=== PATIENT | female | born 1965 | race Caucasian/White ===

== ENCOUNTER 2019-10-19 13:31 | Outpatient (CLI) | payer BC, SELFPAY ==
--- NOTE | 2019-10-19 13:37 | ECG_ITS ---
Measurements Intervals [place] Rate: 60 P: 75 IN: 134 QRS: 34 QRSD: 85 T: 16 QT: 408 QTc: 409 Interpretive Statements SINUS RHYTHM DELAYED PRECORDIAL R/S TRANSITION BORDERLINE ST-T WAVE ABNORMALITY- ANT/INF LEADS BASELINE ARTIFACT- I, III, AVL BORDERLINE ECG Electronically Signed On 10-19-2019 14:15:43 CDT by Ryne Douglas D.O.
== END 2019-10-19 13:32 | disposition home or self-care (01) ==
PROVIDERS: PCP Internal Medicine; Visit Provider Obstetrics & Gynecology
DX: Z72.0 Tobacco use (principal)
CPT/HCPCS: 93005

== ENCOUNTER 2020-06-03 12:18 | Outpatient (CLI) | payer BC, SELFPAY ==
[2020-06-03 12:48] LABS: Basophils Percent Auto 0.4 % (0.2-1.2); Eosinophils Absolute Auto 0.2 K/mm3 (0-0.3); Eosinophils Percent Auto 4.6 % (0-4.4); Hematocrit 39.6 % (37.0-47.0); Immature Granulocyte Absolute 0.01 K/mm3 (0.00-0.031); Immature Granulocyte Percent A 0.2 % (0-0.5); Lymphocytes Absolute Auto 1.96 K/mm3 (0.9-3.2); Mean Corpuscular HGB Conc 32.8 g/dl (32-36); Mean Corpuscular Hemoglobin 30.1 pg (26-34); Mean Corpuscular Volume 91.7 fl (80-100); Mean Platelet Volume 9.9 fl (7.4-10.4); Monocytes Absolute Auto 0.3 K/mm3 (0.1-0.6); Monocytes Percent Auto 6.4 % (2.6-8.5); Neutrophils Absolute Auto 2.1 K/mm3 (1.3-6.7); Neutrophils Percent Auto 45.4 % (45.5-73.1); Platelet Count Result 262 k/mm3 (150-375); Red Blood Count 4.32 M/mm3 (4.2-5.4); Red Cell Distribution Width 11.7 % (11.5-14.5); White Blood Count 4.6 K/mm3 (4.5-10.0)
[2020-06-03 13:00] LABS: Alanine Aminotransferase 19 U/L (4-35); Albumin Level 4.1 g/dL (3.5-5.1); Alkaline Phosphatase 67 U/L (38-126); Anion Gap 4 mmol/L (8-16); Aspartate Amino Transferase 23 U/L (14-36); Bilirubin,Total 0.3 mg/dL (0.2-1.3); Blood Urea Nitrogen 16 mg/dL (7-17); Calcium 9.3 mg/dL (8.4-10.2); Carbon Dioxide 33 mmol/L (22-30); Chloride 105 mmol/L (98-107); Estimated Glomerular Filt Rate > 60; Glucose 98 mg/dL (65-105); Potassium 4.1 mmol/L (3.4-5.0); Sodium 142 mmol/L (137-145)
== END 2020-06-03 12:19 | disposition home or self-care (01) ==
LOC: ANHSURGERY 12:20
PROVIDERS: PCP Internal Medicine; Visit Provider Obstetrics & Gynecology
DX: D25.9 Leiomyoma of uterus, unspecified (principal); Z01.818 Encounter for other preprocedural examination
CPT/HCPCS: 36415; 80053; 85025; 86850; 86900; 86901

== ENCOUNTER 2020-06-08 01:36 | Outpatient (CLI) | payer BC, SELFPAY ==
[2020-06-08 18:04] LABS: SARS-CoV-2 RNA PCR Negative
== END 2020-06-08 01:37 | disposition home or self-care (01) ==
LOC: ANHCOVIDDT 01:36
PROVIDERS: Visit Provider Obstetrics & Gynecology
DX: Z01.812 Encounter for preprocedural laboratory examination (principal); Z20.828 Contact with and (suspected) exposure to other viral communicable diseases
CPT/HCPCS: 87635; C9803; U0003

== ENCOUNTER 2020-06-12 00:43 | Day surgery (SDC) | payer BC, SELFPAY ==
[2020-05-31 14:19] VITALS: BMI 27.4
--- NOTE | 2020-06-11 13:12 | WPDANESEPPF ---
Anes - Initial Pre Proc Eval Procedure: Operation Date: 06/12/20 07:30 Proposed Procedures p Total Laparoscopic Hysterectomy - Diane Perkins MD Date/Time: 06/11/20 13:12 Surgeon: Diane Perkins MD Pre Op Diagnosis: uterine leiomyoma Patient Data Age: 54 Gender: F Height: 1.68 m Weight: 77.11 kg Allergies Allergy/AdvReac Type Severity Reaction Status Date / Time No Known Allergies Allergy Unknown Unverified 06/12/20 06:57 Home Medications Medication Instructions Recorded Confirmed Type buprenorphine-naloxone [Suboxone] See Rx Instructions .ROUTE .COMPLEX 10/16/19 05/31/20 History sertraline 150 mg PO DAILY 10/16/19 05/31/20 History levothyroxine [Euthyrox] 125 mcg PO DAILY 05/31/20 05/31/20 History multivitamin 1 tablet PO DAILY 05/31/20 05/31/20 History Patient hx anesthesia problems: none Family hx anesthesia problems: none PMFSH Past Medical History Medical History (Updated 06/11/20 @ 13:13 by Sammy Jeffery MD) Anxiety Back pain Chronic narcotic use Depression Raynauds disease Family History Family History (Updated 03/29/14 @ 07:13 by DOCTOR UNKNOWN) Father Hypertension Family history of elevated blood lipids Family history of coronary artery disease Acute myocardial infarction Social History Social History Smoking packs per day: 1 Smoking cigarettes per day: 20.0 Years smoked: 30 Smoking pack-years: 30.00 Smoking status: Former smoker Tobacco type: cigarettes and e-cigarettes/vaping Additional smoking assessment comments: quit cigarettes 07/2019, current vapor cigarette Alcohol intake: never Spiritual care concerns: No Anes - Eval Final PreProcedure Day of Procedure 06/11/20 13:12 Patient weight: overweight Heart: regular rate and rhythm Lungs: clear to auscultation and normal air movement Airway: Mallampati scale class II Neurological: alert and oriented Last oral intake: >/= 8 hours ASA classification: III Emergent: no Anesthetic plan: proceed Anesthesia type and monitoring: general ETT Other findings: 6 mg suboxone daily Informed Consent: The patient's anesthetic plan and its attendant risks and benefits were discussed with the patient/family/POA. Questions were solicited and answers provided to the satisfaction of the patient/family/POA.
[2020-06-12] VITALS (17 sets, daily range): BP systolic 120–152; BP diastolic 56–86; PULSE 65–87; RESP 12–20; TEMP 36.4–37.3; O2SAT 95–100
[2020-06-12] MEDS: ACETAMINOPHEN 500 MG TABLET 1000 MG PO (06:37)
[2020-06-12] MEDS: LACTATED RINGERS 1,000 ML 30 ML IV CONT ×3 (06:45→10:29)
[2020-06-12] MEDS: KETOROLAC 15 MG/ML VIAL (*BKC) IV PUSH (06:46)
--- NOTE | 2020-06-12 07:14 | WPDHPUPDATE1 ---
History and Physical Update Update Date/Time: 06/12/20 07:14 History and Physical has been reviewed, including an updated exam of the patient. There are NO changes in the patient's condition. Risks, benefits, and alternatives have been discussed and questions answered. Patient agrees to proceed with procedure.
--- NOTE | 2020-06-12 07:20 | WPDHPUPDATE1 ---
History and Physical Update Update Date/Time: 06/12/20 07:20 to also perform BSO History and Physical has been reviewed, including an updated exam of the patient. There are NO changes in the patient's condition. Risks, benefits, and alternatives have been discussed and questions answered. Patient agrees to proceed with procedure.
[2020-06-12] MEDS: ceFAZolin 2 GM/D5W 50 ML 2 GM/50 ML BAG IVPB (07:34)
--- NOTE | 2020-06-12 10:02 | PM.PROC ---
Procedure Note - Detailed Date of procedure: 06/12/20 Pre-op diagnosis: uterine leiomyoma Severe menorrhagia , pelvic pain, dyspareunia Post-op diagnosis: same Procedure performed: Total laparoscopic hysterectomy bilateral salpingo-oophorectomy Description of procedure: The patient was taken to the operating room. She was prepped and draped in the dorsal lithotomy position. A speculum was placed in the vagina. The cervix was grasped with a tenaculum. Stay sutures were placed at 3 and 9:00 a.m. of 0 Vicryl. The stay sutures were brought through the Philip up. The ROYCE manipulator was placed in the vagina with a fixed Philip cup. The cup was then pushed up around the cervix. The sutures were tied to the handle of the ROYCE manipulator. A 5 mm incision was made on the abdominal skin of the left upper quadrant using a scalpel. A 5 mm trocar was inserted into the intra-abdominal cavity under direct visualization the scope. Pneumoperitoneum was achieved. An 11 mm incision was made in the left lower quadrant of the abdomen with a scalpel. A 11 mm trocar was inserted into the intra-abdominal cavity under direct visualization the scope. A 5 mm periumbilical incision was made. A 5 mm scope was placed into the intra-abdominal cavity under direct visualization of the scope. The ureters were identified. The ureters were observed to be away from the infundibulopelvic ligaments. These infundibulopelvic ligaments were isolated, cauterized, and transected with LigaSure cautery. This was done in a bilateral fashion. The para ovarian tissue along the pelvic sidewall was cauterized and transected in a bilateral fashion using the ligature cautery. The round ligaments were cauterized and transected bilaterally with LigaSure cautery. The broad ligaments were cauterized and transected along the lateral aspects of the uterus down the level of the uterine arteries. A bladder flap was created using sharp and blunt dissection. The ureters were dissected out bilaterally down to the level of the uterine arteries. The could be visualized from the pelvic brim down the uterine arteries. Staying very close to the cervix the parametrium was cauterized transected in a stepwise fashion down to the level of the Philip cup. The Bladder flap was moved distally over the Philip cup using sharp and blunt dissection. The cup was visualized and a complete 360 degree papillary around the cervix. An incision was made with unipolar cautery down under the Philip cup creating a colpotomy incision all the way around the cervix. The uterus was cut into 3 pieces with unipolar cautery. Prior to that a 4th trocar was placed in the right lower quadrant trocar site. The uterus was grasped with 2 tenaculi , using traction, counter traction to facilitate the uterus into 3 pieces.. The uterus tubes and ovaries were taken out through the vagina. A pneumo occluder was placed in the vagina. The vagina was closed with 0 V lock suture in a running fashion. The ureters were identified again and found to be intact elevated and the uterine arteries. The pelvis was irrigated with a copious amount of antibiotic irrigation. The pneumoperitoneum was reduced. The trocars were removed. The skin was closed subcuticular 4 Monocryl covered with Dermabond. The pneumo occluder was removed from the vagina. The vagina was irrigated with Betadine. The patient tolerated the procedure well. She was taken to the recovery room in stable condition. Sponge lap and needle counts were correct x2. Anesthesia: GETA Surgeon: Diane Perkins MD Estimated blood loss (mL): 200 Drains: No Packing: No Pathology: yes Complications: No immediate complications Condition: stable Disposition: PACU Findings: Grossly normal-appearing tubes and ovaries. markedly enlarged fibroid uterus with multiple large fibroids. Fibroids were firm and calcified.
[2020-06-12] MEDS: fentaNYL CITRATE INJ (*CRX) 100 MCG/2 ML VIAL 50 MCG IV PUSH ×4 (10:13→10:37)
[2020-06-12] MEDS: HYDROmorphone HCL INJ (*CRX) 1 MG/ML SYR 0.5 MG IV PUSH ×8 (10:43→11:18)
--- NOTE | 2020-06-12 11:25 | PC.NURSE ---
This patient, Blanca Zapata, was received from PACU per bed to room 288. Patient/family oriented to unit policies and routines
[2020-06-12] MEDS: SIMETHICONE 80 MG TAB.CHEW PO ×2 (14:05→21:43)
[2020-06-12] MEDS: KETOROLAC 30 MG/ML VIAL (*BKC) IV PUSH ×2 (16:11→21:47)
[2020-06-13 01:45] VITALS: BP 127/75; PULSE 67; RESP 14; TEMP 36.9
[2020-06-13 05:30] VITALS: BP 135/78; PULSE 62; RESP 15; TEMP 36.8
[2020-06-13] MEDS: LEVOTHYROXINE SODIUM 125 MCG TABLET PO (07:23)
[2020-06-13] MEDS: IBUPROFEN 600 MG TABLET PO (07:23)
[2020-06-13] MEDS: MULTIVITAMINS THERAPEUTIC TAB (*BKC) 1 TABLET PO (07:24)
[2020-06-13] MEDS: SERTRALINE HCL 50 MG TABLET 150 MG PO (07:25)
[2020-06-13] MEDS: SIMETHICONE 80 MG TAB.CHEW PO (07:29)
[2020-06-13 08:25] VITALS: BP 128/76; PULSE 73; RESP 18; TEMP 37.1; O2SAT 97
--- NOTE | 2020-06-13 09:47 | WPDANESPN ---
Anes - Prog Note Post-Op Date/Time: 06/13/20 09:47 Cardiovascular status: normal Respiratory status: normal Airway patency: baseline Mental status: baseline Post-Op hydration status: normal Vital Signs: Last Vital Signs Temp 37.1 C 06/13/20 08:25 Pulse 73 06/13/20 08:25 Resp 18 06/13/20 08:25 BP 128/76 06/13/20 08:25 Pulse Ox 97 06/13/20 08:25 Pain Score (VAS): 0 I/O: Intake & Output 06/12/20 06/13/20 06/13/20 23:59 07:59 15:59 Intake Total 480 500 Output Total 1800 600 Balance -1320 -100 Post-procedural complaints: none Patient Feedback: Patient satisfied with anesthetic care.
--- NOTE | 2020-06-13 15:01 | PM.GYNPNOP ---
STEREO EQUIPMENT SALESPERSON - A/P Postoperative Procedures: Procedures Operation Date: 06/12/20 07:30 Actual Procedures Side Surgeon p Total Laparoscopic Hysterectomy with bilateral salpingo oophorectomy Bilateral Diane Perkins MD Postoperative day: 1 Postoperative status: doing well and other (Tollerating Regular Diet) Postoperative plan: routine post-op care and discharge Time Spent With Patient Time: Total time spent is greater than 50% in coordination of care (as documented) at patient's floor/unit and/or counseling patient: Time with patient: 15 - 25 minutes STEREO EQUIPMENT SALESPERSON- PN:Subj Post-Op Subjective Date/time seen: 06/13/20 15:01 Subjective: patient reports feeling better, pain is well controlled and patient is tolerating oral intake Exam Const: General: cooperative, healthy appearing, comfortable and no acute distress Resp: Auscultation: no crackles, no rales, no rhonchi and no wheezes Cardio: Rhythm: regular rhythm Heart sounds: no click and no murmurs GI: Inspection: non-distended Auscultation: normal bowel sounds Other: Incisions - CDI Extrem: General: normal to inspection, no pedal edema and no calf tenderness STEREO EQUIPMENT SALESPERSON - PN: Obj Data Vital Signs Vital Signs: Vital Signs - 24 hr 06/12/20 20:00 06/13/20 01:45 06/13/20 05:30 Temperature 98.6 F 98.5 F 98.2 F Pulse Rate 77 67 62 Respiratory Rate 18 14 15 Blood Pressure 120/62 127/75 135/78 Pulse Oximetry 06/13/20 08:25 Temperature 98.7 F Pulse Rate 73 Respiratory Rate 18 Blood Pressure 128/76 Pulse Oximetry 97 Intake/Output Intake/Output: Intake & Output 06/10/20 06/11/20 06/12/20 06/13/20 23:59 23:59 23:59 23:59 Intake Total 1630 500 Output Total 2275 600 Balance -645 -100 Meds/Results Medications: Active Medications Generic Name Dose Route Start Last Admin Trade Name Freq PRN Reason Stop Dose Admin Hydrocodone Bitart/Acetaminophen 1 tab 06/12/20 11:18 Hydrocodone/Acetaminophen (*Crx) 5-325 Mg Tablet PO Q3H PRN Pain Rated 5 or Less Hydrocodone Bitart/Acetaminophen 1 tab 06/12/20 11:18 Hydrocodone/Acetaminophen (*Crx) 10-325 Mg Tablet PO Q3H PRN Pain Rated 6 or Greater Ibuprofen 600 mg 06/12/20 11:18 06/13/20 07:23 Ibuprofen 600 Mg Tablet PO 600 mg Q6H PRN Administration Cramping Ketorolac Tromethamine 30 mg 06/12/20 11:18 06/12/20 21:47 Ketorolac 30 Mg/Ml Vial (*Bkc) IV PUSH 06/17/20 11:19 30 mg Q6H PRN Administration Pain Rated 4-6 Levothyroxine Sodium 125 mcg 06/13/20 06:30 06/13/20 07:23 Levothyroxine Sodium 125 Mcg Tablet PO 125 mcg DAILY@0630 GÓMEZ Administration Multivitamins Therapeutic 1 tablet 06/13/20 09:00 06/13/20 07:24 Multivitamins Therapeutic Tab (*Bkc) PO 1 tablet DAILY GÓMEZ Administration Naloxone HCl 0.1 mg 06/12/20 11:18 Naloxone Hcl 0.4 Mg/Ml Vial IV PUSH Q2M PRN Respiratory rate less than 10 Non-Formulary Medication 8 mg 06/12/20 11:18 Buprenorphine-Naloxone [Suboxone] .ROUTE 07/12/20 11:19 .COMPLEX GÓMEZ Ondansetron HCl 4 mg 06/12/20 11:18 Ondansetron Inj 4 Mg/2 Ml Vial IV PUSH Q6H PRN Nausea And Vomiting Sertraline HCl 150 mg 06/13/20 09:00 06/13/20 07:25 Sertraline Hcl 50 Mg Tablet PO 150 mg DAILY GÓMEZ Administration Simethicone 80 mg 06/12/20 14:08 06/13/20 07:29 Simethicone 80 Mg Tab.Chew PO 80 mg Q2H PRN Administration Gas Discomfort
== END 2020-06-13 15:23 | disposition home or self-care (01) ==
LOC: ANHSURGERY 06:08 → ANHOB2 11:24
PROVIDERS: Visit Provider Obstetrics & Gynecology
PROC: 0UT9FZZ Resection of Uterus, Via Natural or Artificial Opening With Percutaneous Endoscopic Assistance (ICD-10-PCS; CPT 58571; principal; 2020-06-12 07:30)
DX: N92.0 Excessive and frequent menstruation with regular cycle (principal); R10.2 Pelvic and perineal pain; N94.10 Unspecified dyspareunia; D25.0 Submucous leiomyoma of uterus; D25.1 Intramural leiomyoma of uterus; D25.2 Subserosal leiomyoma of uterus; N83.8 Other noninflammatory disorders of ovary, fallopian tube and broad ligament; F41.8 Other specified anxiety disorders; I73.00 Raynaud's syndrome without gangrene; Z79.891 Long term (current) use of opiate analgesic; F17.290 Nicotine dependence, other tobacco product, uncomplicated
CPT/HCPCS: 58571; 88307; 99199; A9270; J0690; J1170; J1200; J1885; J2250; J2405; J2704; J2710; J3010; J7030; J7120

== ENCOUNTER → 2020-09-20 12:03 | Outpatient (CLI) | payer BC, SELFPAY ==
--- NOTE | ~2020-09-20 | CT_ITS ---
EXAMINATION: CT soft tissue neck w con EXAM DATE: 09/20/2020 12:29 INDICATION: Submandibular lymphadenopathy . TECHNIQUE: Spiral CT of the neck was performed following intravenous injection of 75 mL Omnipaque 350 . Axial, coronal and sagittal images were reviewed. The dose-length product (DLP) for this examinat ion was 352.02 mGy-cm. The exposure was tailored according to patient size (auto mA exposure control ), and iterative reconstruction (ASIR) was used as additional dose reduction technique. There is no prior study for comparison. FINDINGS: The thyroid gland is unremarkable. The submandibular and parotid glands are symmetric. Largest cervical lymph node identified is right-sided level 2 internal jugular chain node measuring 2 .4 cm in craniocaudal dimension by 0.8 cm maximal axial dimension. No submandibular lymphadenopathy. The superior mediastinum is unremarkable. The airway is unremarkable. Parapharyngeal and pre-glot tic fat planes are preserved. The opacified vasculature is patent. The orbits are unremarkable. Visualized sinuses and mastoid air cells are well aerated. Lung apices are clear. There is mild c ervical spondylosis. IMPRESSION: 1. Right upper internal jugular chain lymph node upper limits of normal in size. Other lymph nodes we ll within normal size limits. Does this correlate to the palpable abnormality? Recommend clinical fol low-up and if enlargement detected a repeat scan. 2. Symmetric submandibular glands. Reviewed, dictated and finalized at location A. IR OPERATOR IMPRESSION: 1. Right upper internal jugular chain lymph node upper limits of normal in size . Other lymph nodes well within normal size limits. Does this correlate to the palpable abnormality? Recommend clinical follow-up and if enlargement detected a repeat scan. 2. Symmetric submandibular glands.
--- NOTE | ~2020-09-20 | XR_ITS ---
XR chest 2V DATE: 09/20/2020 12:33 INDICATION: Tobacco use TECHNIQUE: 2 views COMPARISON: None FINDINGS: Normal heart size. No hilar or mediastinal enlargement. No pulmonary infiltrate or consolid ation, pleural effusion or pulmonary vascular congestion or pneumothorax. There is mild dextroscoliosis and mild degenerative spurring of the thoracic spine. Mild to moderate osteopenia is suggested. IMPRESSION: No active cardiopulmonary disease Reviewed, dictated and finalized at location B. ERSITY LIBRARIAN
== END ==
DX: R59.0 Localized enlarged lymph nodes (principal); F17.200 Nicotine dependence, unspecified, uncomplicated
CPT/HCPCS: 70491; 71046; Q9967

== ENCOUNTER 2021-01-09 09:05 | Outpatient (CLI) | payer BC, SELFPAY ==
--- NOTE | ~2021-01-09 | DEXA_ITS ---
Bone Density Report Name: Blanca Zapata Age: 55 Sex: Female Ethnicity: White Date of : 1965 Indication: postmenopausal; hysterectomy; Referring Provider: Diane Perkins Study: Bone densitometry was performed. Exam Date: January 09, 2021 Accession number: [id number] Bone Density: Region BMD T-score Z-score Classification AP Spine (L1-L4) 0.965 -0.7 0.2 Normal Femoral Neck (Left) 0.765 -0.8 0.2 Normal Total Hip (Left) 0.872 -0.6 0.0 Normal Total Hip Bilateral Avg 0.876 -0.6 0.1 Normal Femoral Neck (Right) 0.759 -0.8 0.1 Normal Total Hip (Right) 0.878 -0.5 0.1 Normal World Health Organization criteria for BMD impression classify patients as: Normal (T-score at or above -1.0), Osteopenia (T-score between -1.0 and -2.5), or Osteoporosis (T-score at or below -2.5). 10-year Fracture Risk: FRAX not reported because: All T-scores for Spine Total, Hip Total, Femoral Neck at or above -1.0 Clinical Information Provided by Patient: Smokes Has used the following medications: HRT (i.e. estrogen/hormone therapy), Vitamin D, Calcium Has the following medical conditions: Hysterectomy Patient maximum height was 66 Menopause Age: 52 No regular weight bearing exercise Onset of menses at age 14 Number of children 0 Impression: The patient has normal bone mass. The patient has risk factors, including: smoking. Discussion: BONE DENSITY IS ABOVE THE MINIMUM DESIRABLE LEVEL AT ALL SKELETAL SITES TESTED. This patient?s bone mineral density is above the minimum desirable level (T-score -1.0 or better) at all sites measured. The patient should follow a healthful lifestyle (good nutrition with adequate calcium and vitamin D, and appropriate weight-bearing exercise). Follow-Up: Consider repeating this study in 5 years or sooner if there is some new clinical indication. Reported by: JESUS on 01/09/2021 9:32:00 AM. Reviewed, dictated and finalized at location ATami DONATO
--- NOTE | ~2021-01-09 | MM_ITS ---
EXAMINATION: MM screening robert BI w brady HISTORY: Screening mammogram TECHNIQUE: Craniocaudal and mediolateral oblique 3-D tomosynthesis images were obtained and synthetic 2-D images were generated. CAD analysis was submitted and interpreted. COMPARISON: No prior mammogram is available for comparison at this institution. BREAST PARENCHYMAL COMPOSITION: The breasts are heterogeneously dense, which may obscure small masses . FINDINGS: Circumscribed 6 mm mass in the inner aspect of the mid medial right breast (craniocaudal To mosynthesis image ) Otherwise there is no evidence of suspicious mass, calcification, or architectural distortion to sugg est malignancy in either breast. IMPRESSION: 1. 6 mm circumscribed mass in inner aspect of mid medial right breast 2. Diagnostic right mammogram and right breast ultrasound examination are recommended. BI-RADS Category 0: Incomplete: Needs additional imaging evaluation. Reviewed, dictated and finalized at location A. IMPRESSION: 1. 6 mm circumscribed mass in inner aspect of mid medial right breast 2. Diagnostic right mammogram and right breast ultrasound examination are recom mended. BI-RADS Category 0: Incomplete: Needs additional imaging evaluation.
== END 2021-01-09 09:06 | disposition home or self-care (01) ==
LOC: ANHIMG 09:07
PROVIDERS: Visit Provider Obstetrics & Gynecology
DX: Z12.31 Encounter for screening mammogram for malignant neoplasm of breast (principal); Z78.0 Asymptomatic menopausal state; R92.8 Other abnormal and inconclusive findings on diagnostic imaging of breast
CPT/HCPCS: 77063; 77067; 77080

== ENCOUNTER 2022-01-26 07:59 | Outpatient (CLI) | payer BC, SELFPAY ==
--- NOTE | 2022-02-09 19:06 | WPDHOMESLEEP ---
Sleep Study - Home Unattended Date of Study: 01/26/22 Ordering Provider: Donna Mack MD Interpreting Provider: Susi Bunn, DO Home Sleep Study Type: Apnea Link Air Height: 1.65 m Weight: 78.925 kg Body Mass Index: 28.9 Neck Circumference (inches): 16 [place]: 15 Reason for Sleep Study Nighttime heart palpitations, Worsening depression Sleep History The patient is a 56-year-old female with hypertension, depression, hypothyroidism, Raynaud's and history of tobacco use that had a sleep study ordered by her french tutor for evaluation of sleep apnea. 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 He denies awakening from sleep short of breath. She denies awakening at night with heartburn, belching or cough. She occasionally snores but it is never loud enough that others complain. She denies having trouble sleeping when she has a cold. She denies waking up gasping for air throughout the night. She denies having breathing problems at night observed by herself or others. She denies sweating excessively at night. She constantly has heart palpitations or irregular heartbeats during the night. She denies falling asleep during the day and while driving. She denies sleep paralysis and cataplexy. She denies having trouble at school or work due to sleepiness. She frequently experiences vivid dreamlike scenes upon awakening or falling asleep. She denies feeling afraid of going to sleep. She occasionally has nightmares and she occasionally remembers her dreams. She constantly has thoughts racing through her mind. She constantly feels sad, depressed and anxious. She rarely has muscular tension. She frequently notices parts of her body jerk. She rarely kicks during the night. She rarely experiences crawling and aching feelings in her legs. She rarely has leg pain during the night. She denies grinding her teeth during sleep and awakening with morning jaw pain. He is rarely bothered by pain during the day and rarely awakened by pain during the night. She denies waking up feeling stiff in the morning. She denies waking up with sore achy muscles. She denies waking up with pain in the neck, spine or other joints. The patient goes to bed between 1 a.m. on both weekdays and weekends. She is unsure how long it takes her to fall asleep. She rarely wakes up during the night. When she awakens, she will just lay in bed. It can take her up to an hour to fall back asleep. She wakes up at 10:00 a.m. on and 7:00 a.m. on Sundays. She typically gets 8-10 hours of sleep per night. She does not stay in bed after waking up in the morning. She currently lives with her . She does not consume any caffeinated beverages within 2 hours of bedtime. She does not engage in physical exercise before bedtime. She will read watch television before falling asleep. She does not take naps in the afternoon or the evening. He does not consume any caffeinated beverages throughout the day. She currently uses E cigarettes. She denies alcohol and recreational drug use. [facility] Past Medical History Medical History ADHD Anxiety Back pain Chronic narcotic use Depression Raynauds disease Family History Family History Father Hypertension Family history of elevated blood lipids Family history of coronary artery disease Acute myocardial infarction Social History Social History Smoking packs per day: 1 Smoking cigarettes per day: 20.0 Years smoked: 30 Smoking pack-years: 30.00 Smoking status: Former smoker Tobacco type: cigarettes and e-cigarettes/vaping Additional smoking assessment comments: quit cigarettes 07/2019, current vapor cigarette Alcohol intake: never Spiritual care concerns: No Medications Home Medications Medication Inst
[2022-02-09 19:11] VITALS: BMI 28.9
== END 2022-01-27 12:37 | disposition home or self-care (01) ==
LOC: ANHCSM 08:00
PROVIDERS: Visit Provider Internal Medicine Critical Care Medicine
DX: G47.10 Hypersomnia, unspecified (principal)
CPT/HCPCS: 95806

== ENCOUNTER 2022-03-17 08:03 | Outpatient (CLI) | payer BC, SELFPAY ==
--- NOTE | 2022-04-21 00:44 | WPDSLEEPSTUD ---
Sleep Study Date of Study: 03/17/22 Ordering Provider: Donna Mack MD Interpreting Physician: Suis Bunn DO Sleep Study Type: Polysomnogram Height: 1.65 m Weight: 77.111 kg Body Mass Index: 28.3 Neck Circumference (inches): 15 [place]: 10 Reason for Sleep Study The patient had a home sleep study on 01/26/2022 that showed an AHI of 1.4 Sleep History The patient is a 56-year-old female with hypertension, depression, hypothyroidism, Raynaud's and history of tobacco use that had a sleep study ordered by her automatic silk screen printer for evaluation of sleep apnea.? 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 He denies awakening from sleep short of breath.? She denies awakening at night with heartburn, belching or cough.? She occasionally snores but it is never loud enough that others complain.? She denies having trouble sleeping when she has a cold.? She denies waking up gasping for air throughout the night.? She denies having breathing problems at night observed by herself or others.? She denies sweating excessively at night.? She constantly has heart palpitations or irregular heartbeats during the night.? She denies falling asleep during the day and while driving.? She denies sleep paralysis and cataplexy.? She denies having trouble at school or work due to sleepiness.? She frequently experiences vivid dreamlike scenes upon awakening or falling asleep.? She denies feeling afraid of going to sleep.? She occasionally has nightmares and she occasionally remembers her dreams.? She constantly has thoughts racing through her mind.? She constantly feels sad, depressed and anxious.? She rarely has muscular tension.? She frequently notices parts of her body jerk.? She rarely kicks during the night.? She rarely experiences crawling and aching feelings in her legs.? She rarely has leg pain during the night.? She denies grinding her teeth during sleep and awakening with morning jaw pain.? He is rarely bothered by pain during the day and rarely awakened by pain during the night.? She denies waking up feeling stiff in the morning.? She denies waking up with sore achy muscles.? She denies waking up with pain in the neck, spine or other joints.? The patient goes to bed between 1 a.m. on both weekdays and weekends.? She is unsure how long it takes her to fall asleep.? She rarely wakes up during the night.? When she awakens, she will just lay in bed.? It can take her up to an hour to fall back asleep.? She wakes up at 10:00 a.m. on and 7:00 a.m. on Sundays.? She typically gets 8-10 hours of sleep per night.? She does not stay in bed after waking up in the morning.? She currently lives with her .? She does not consume any caffeinated beverages within 2 hours of bedtime.? She does not engage in physical exercise before bedtime.? She will read watch television before falling asleep.? She does not take naps in the afternoon or the evening. He does not consume any caffeinated beverages throughout the day.? She currently uses E cigarettes. She denies alcohol and recreational drug use. [facility] Past Medical History Medical History ADHD Anxiety Back pain Chronic narcotic use Depression Raynauds disease Family History Family History Father Hypertension Family history of elevated blood lipids Family history of coronary artery disease Acute myocardial infarction Social History Social History Smoking packs per day: 1 Smoking cigarettes per day: 20.0 Years smoked: 30 Smoking pack-years: 30.00 Smoking status: Former smoker Tobacco type: cigarettes and e-cigarettes/vaping Additional smoking assessment comments: quit cigarettes 07/2019, current vapor cigarette Alcohol intake: never Spiritual care concerns: No Medications Home Medications Medication Instr
[2022-04-21 00:56] VITALS: BMI 28.3
== END 2022-03-18 08:10 | disposition home or self-care (01) ==
LOC: ANHCSM 08:04
PROVIDERS: Visit Provider Internal Medicine Critical Care Medicine
DX: G47.10 Hypersomnia, unspecified (principal); G47.30 Sleep apnea, unspecified; R00.8 Other abnormalities of heart beat
CPT/HCPCS: 95810

== ENCOUNTER 2022-06-23 14:32 | Emergency (ER) | payer BC, SELFPAY ==
[2022-06-23 14:40] VITALS: BP 143/89; PULSE 97; RESP 16; TEMP 36.9; O2SAT 99
--- NOTE | 2022-06-23 14:53 | PC.NURSE ---
pt found vaping in her room. pt asked to put it away as we do not allow smoking in the hospital or on our campus. pt agreeable.
--- NOTE | 2022-06-23 15:06 | PC.NURSE ---
pt verbalized it is ok if is a visitor.
--- NOTE | 2022-06-23 15:13 | PC.NURSE ---
pt vape confiscated by this RN and security Geovanna. pt vape placed in safe.
--- NOTE | 2022-06-23 15:51 | ECG_ITS ---
Measurements Intervals [place] Rate: 94 P: 64 WV: 126 QRS: 37 QRSD: 92 T: -9 QT: 367 QTc: 460 Interpretive Statements SINUS RHYTHM ST-T WAVE ABNORMALITY IN ANT/INF LEADS- CONSIDER ISCHEMIA BASELINE ARTIFACT- I, III, AVL ABNORMAL ECG COMPARED TO ECG 10/19/2019 14:04:02 ST-T WAVE ABNORMALITY NOW PRESENT Electronically Signed On 06-24-2022 8:55:36 POLL WATCHER by Ryne Douglas D.O.
--- NOTE | 2022-06-23 15:54 | ED.GENADULT ---
HPI - General Adult General Chief complaint: Psychiatric Symptoms <Harley Mcintyre MD - Last Filed: 07/04/22 14:12> Stated complaint: SI <Harley Mcintyre MD - Last Filed: 07/04/22 14:12> Time Seen by Provider: 06/23/22 14:43 <Harley Mcintyre MD - Last Filed: 07/04/22 14:12> History of Present Illness HPI narrative: 56-year-old female presenting to the emergency department for evaluation of worsening anxiety depression with associated suicidal ideation. Patient does have a psychiatrist and a counselor and had previously been on sertraline. Patient stopped this approximately 2 months ago because she felt that this was not helping her anymore. Patient states over the last few weeks she has had worsening anxiety. Patient states today that she did develop some suicidal ideation. Patient is unsure if she still wants to but she did express a plan to her . Her is the person who actually called police and EMS. Patient does have a psychiatrist and does have a counselor. <Harley Mcintyre MD - Last Filed: 07/04/22 14:12> Related Data Home medications: Home Medications Medication Instructions Recorded Confirmed levothyroxine 125 mcg tablet 125 mcg PO DAILY 05/31/20 06/12/20 (Euthyrox) multivitamin 1 tablet PO DAILY 05/31/20 06/12/20 aripiprazole 2 mg tablet (Abilify) 2 mg PO DAILY 10/28/21 buprenorphine 8 mg-naloxone 2 mg 4 film sublingual .COMPLEX 10/28/21 sublingual film (Suboxone) lisdexamfetamine 50 mg capsule 50 mg PO DAILY 10/28/21 (Vyvanse) <Harley Mcintyre MD - Last Filed: 07/04/22 14:12> Allergies/adverse reactions: Allergies Allergy/AdvReac Type Severity Reaction Status Date / Time No Known Allergies Allergy Unknown Unverified 10/28/21 11:49 <Harley Mcintyre MD - Last Filed: 07/04/22 14:12> Review of Systems Review of Systems: CONSTITUTIONAL: Denies fever, chills, or sweats. EYES: Denies visual changes, redness, or discharge. ENT: Denies rhinorrhea, congestion, sore throat, or otalgia. CARDIOVASCULAR: Denies chest pain, palpitations, or edema. RESPIRATORY: Denies cough or dyspnea. GASTROINTESTINAL: Denies abdominal pain, nausea, vomiting, or diarrhea. GENITOURINARY: Denies dysuria or hematuria. SKIN: Denies rash or itching. MUSCULOSKELETAL: Denies back pain, joint pain, or myalgia. NEUROLOGIC: Denies headache, numbness, or weakness. PSYCHIATRIC: See HPI <Harley Mcintyre MD - Last Filed: 07/04/22 14:12> PMFSH Past Medical History Medical History: Medical History ADHD Anxiety Back pain Chronic narcotic use Depression Raynauds disease <Harley Mcintyre MD - Last Filed: 07/04/22 14:12> Family History Family History: Family History Father Hypertension Family history of elevated blood lipids Family history of coronary artery disease Acute myocardial infarction <Harley Mcintyre MD - Last Filed: 07/04/22 14:12> Social History Social History: Social History Smoking packs per day: 1 Smoking cigarettes per day: 20.0 Years smoked: 30 Smoking pack-years: 30.00 Smoking status: Former smoker Tobacco type: cigarettes and e-cigarettes/vaping Additional smoking assessment comments: quit cigarettes 07/2019, current vapor cigarette Alcohol intake: never Substance use type: unknown Spiritual care concerns: No <Harley Mcintyre MD - Last Filed: 07/04/22 14:12> Exam Narrative: APPEARANCE: Well appearing, no pain, no distress, well-nourished. HEAD: normocephalic, atraumatic. EYES: PERRLA/EOMI, conjunctivae clear. NOSE: Normal no drainage THROAT: Pharynx clear, no exudate. NECK: Supple. No adenopathy, no masses. RESPIRATORY: Airway patent, respirations nonlabored. Clear to auscultation bilaterally, no rales, rhonchi, wheezing
[2022-06-23] MEDS: LORazepam (*CRX) 1 MG TABLET PO ×2 (16:16→21:33)
--- NOTE | 2022-06-23 16:16 | PC.NURSE ---
pt refused nicotine patch, stating she had nicotine gum pt did receive Ativan 1 mg PO per order no scanner in room 15
[2022-06-23 16:21] LABS: Basophils Percent Auto 0.3 % (0.2-1.2); Eosinophils Percent Auto 0.2 % (0-4.4); Hematocrit 44.5 % (37.0-47.0); Hemoglobin 15.1 g/dL (12.0-15.0); Immature Granulocyte Absolute 0.03 K/mm3 (0.00-0.031); Immature Granulocyte Percent A 0.3 % (0-0.5); Lymphocytes Absolute Auto 1.94 K/mm3 (0.9-3.2); Lymphocytes Percent Auto 18.9 % (18.3-44.2); Mean Corpuscular HGB Conc 33.9 g/dl (32-36); Mean Corpuscular Hemoglobin 30.2 pg (26-34); Mean Platelet Volume 10.2 fl (7.4-10.4); Monocytes Absolute Auto 0.5 K/mm3 (0.1-0.6); Monocytes Percent Auto 4.4 % (2.6-8.5); Neutrophils Absolute Auto 7.8 K/mm3 (1.3-6.7); Neutrophils Percent Auto 75.9 % (45.5-73.1); Platelet Count Result 412 k/mm3 (150-375); White Blood Count 10.3 K/mm3 (4.5-10.0)
[2022-06-23 16:31] LABS: Acetaminophen < 10 ug/mL (10-30); Ethanol < 10 mg/dL (<10); Salicylate < 1.0 mg/dL (2-20)
[2022-06-23 16:39] LABS: Add Urine Microscopic? YES; Appearance Urine Clear (Clear); Bilirubin Urine 1+ (Negative); Blood Urine Trace-intact (Negative); Color Urine Yellow (Yellow); Glucose Urine UA Negative (Negative); Ketones Urine 2+ mg/dL (Negative); Leukocyte Esterase Ur 1+ LEU/UL (Negative); Nitrate Urine Negative (Negative); Protein Urine Negative (Negative); Specific Grav Ur 1.015 (1.001-1.035); Urobilinogen Urine 0.2 mg/dL (<2.0); pH Urine 6.5 (5.0-9.0)
[2022-06-23 16:46] LABS: Bacteria Urine Trace /hpf; Mucus Urine Rare /lpf; Squamous Epithelial Cell Urine Rare /hpf (Few)
[2022-06-23 16:51] LABS: Barbiturate Screen Urine Negative (Negative); Benzodiazepines Screen Urine Negative (Negative)
[2022-06-23 16:55] LABS: Amphetamine Screen Urine Negative (Negative); Cannabinoid Screen Urine Negative (Negative); Cocaine Screen Urine Negative (Negative); Methadone Screen Urine Negative (Negative); Phencyclidine Screen Urine Negative (Negative)
[2022-06-23 17:12] LABS: Opiate Screen Urine Negative (Negative)
[2022-06-23 17:14] LABS: Alanine Aminotransferase 31 U/L (6-35); Albumin Level 4.9 g/dL (3.5-5.1); Alkaline Phosphatase 79 U/L (38-126); Anion Gap 11 mmol/L (8-16); Aspartate Amino Transferase 40 U/L (14-36); Bilirubin,Total 0.6 mg/dL (0.2-1.3); Blood Urea Nitrogen 14 mg/dL (7-17); Calcium 9.8 mg/dL (8.4-10.2); Carbon Dioxide 29 mmol/L (22-30); Chloride 98 mmol/L (98-107); Estimated CRCL calculation 100 ml/min; Estimated Glomerular Filt Rate > 60; Glucose 142 mg/dL (65-110); Potassium 3.5 mmol/L (3.4-5.0); Sodium 138 mmol/L (137-145)
[2022-06-23 18:20] LABS: Thyroid Stimulating Hormone 0.028 uIU/mL (0.465-4.680)
[2022-06-23 20:01] LABS: SARS-CoV-2 RNA PCR Negative
[2022-06-23 23:38] VITALS: BP 138/72; PULSE 88; RESP 18; O2SAT 98
--- NOTE | 2022-06-23 23:38 | PC.NURSE ---
Crisis faxed to [facility] - Full [place]- Full [facility] - Full [place]- Faxed fall back in the morning. [facility] - Full call back tomorrow [place]- [facility]- [facility]- [facility]- Full [facility] - Call back in the morning.
--- NOTE | 2022-06-23 23:43 | PC.NURSE ---
Patient still has all belongings. ED Charge nurse aware
[2022-06-24 06:55] VITALS: BP 119/99; PULSE 85; RESP 16; TEMP 36.9; O2SAT 98
--- NOTE | 2022-06-24 08:35 | PC.NURSE ---
Pt caught vaping in room. All belongings taken from pt and locked up
--- NOTE | 2022-06-24 08:43 | PC.NURSE ---
Nurse from [facility] called and got report about pt and states that she is going to present to her MD and call us back
[2022-06-24] MEDS: NICOTINE (*PBKC) 14 MG PATCH 1 PATCH TRANSDERM (11:30)
[2022-06-24 12:20] VITALS: BP 140/86; PULSE 104; RESP 16; TEMP 37.3; O2SAT 98
== END 2022-06-24 12:32 ==
PROVIDERS: Emergency Provider Emergency Medicine
DX: R45.851 Suicidal ideations (principal); F41.9 Anxiety disorder, unspecified; F32.A Depression, unspecified; Z20.822 Contact with and (suspected) exposure to COVID-19; F90.9 Attention-deficit hyperactivity disorder, unspecified type; I73.00 Raynaud's syndrome without gangrene; F17.290 Nicotine dependence, other tobacco product, uncomplicated; Z79.899 Other long term (current) drug therapy
CPT/HCPCS: 36415; 80053; 80307; 81001; 84443; 85025; 87086; 87088; 93005; 99285; A9270; U0003; U0005

== ENCOUNTER 2025-03-06 14:46 | Outpatient (CLI) | payer BC, SELFPAY ==
--- NOTE | ~2025-03-06 | DEXA_ITS ---
Bone Density Report Name: LARISA GARCIA Age: 59 Sex: Female Ethnicity: White Date of : 1965 Indication: postmenopausal; screening for osteoporosis; hysterectomy; Referring Provider: JONAH, WILLARD Sarah Study: Bone densitometry was performed. Exam Date: March 06, 2025 Accession number: [id number] Bone Density: Region BMD T-score Z-score Classification AP Spine(L1-L4) 0.928 -1.1 0.2 Osteopenia Femoral Neck (Left) 0.705 -1.3 -0.1 Osteopenia Total Hip (Left) 0.865 -0.6 0.2 Normal Femoral Neck (Right) 0.737 -1.0 0.2 Normal Total Hip (Right) 0.870 -0.6 0.2 Normal Total Hip Mean 0.867 -0.6 0.2 Normal World Health Organization criteria for BMD impression classify patients as: Normal (T-score at or above -1.0), Osteopenia (T-score between -1.0 and -2.5), or Osteoporosis (T-score at or below -2.5). 10-year Fracture Risk(1): Major Osteoporotic Fracture 6.4% Hip Fracture 0.7% Reported Risk Factors: [place] (), Neck BMD=0.705, BMI=35.3, smoking (1) FRAX(R) Version 3.08. Fracture probability calculated for an untreated patient. Fracture probability may be lower if the patient has received treatment. Previous Exams: -- Region Exam Age BMD T-score BMD Change BMD Change Date g/cm2 vs Baseline vs Previous -- AP Spine (L1-L4) 03/06/2025 59 0.928 -1.1 -3.8%# -3.8%# 01/09/2021 55 0.965 -0.7 Total Hip(Left) 03/06/2025 59 0.865 -0.6 -0.9%# -0.9%# 01/09/2021 55 0.872 -0.6 Total Hip(Right) 03/06/2025 59 0.870 -0.6 -0.9%# -0.9%# 01/09/2021 55 0.878 -0.5 -- *Denotes significance at 95% confidence level, LSC for AP Spine = 0.022 g/cm2, LSC for Total Hip = 0.027 g/cm2 # Denotes dissimilar scan types or analysis methods Clinical Information Provided by Patient: Smokes Has the following medical conditions: Hysterectomy Patient maximum height was 66 Menopause Age: 52 No regular weight bearing exercise Onset of menses at age 14 Number of children 0 Impression: The patient has low bone mass, based on the Left Femoral Neck T-score. The patient has an estimated ten-year risk of hip fracture of 0.7% and an estimated ten-year risk of major fracture of 6.4%, based on the WHO FRAX algorithm. The patient has risk factors, including: smoking. Unable to evaluate interval change due to the use of different scan modes. Discussion: BONE DENSITY IS LOW AT ONE OR MORE SKELETAL SITES. This patient's lowest T-score is low at one or more skeletal sites. It meets the World Health Organization's (WHO) criteria for ?low bone mass? (T-score between -1.0 and -2.5). The patient's 10-year risk of fracture as calculated by FRAX is less than the threshold where pharmacological therapy is recommended by the National Osteoporosis Foundation (NOF). However, all treatment decisions require clinical judgment and consideration of individual patient factors, including patient preferences, comorbidities, previous drug use, risk factors not captured in the FRAX model (e.g., frailty, falls, vitamin D deficiency, increased bone turnover, interval significant decline in bone density) and possible under or overestimation of fracture risk by FRAX. The patient should follow a healthful lifestyle (good nutrition with adequate calcium and vitamin D, and appropriate weight-bearing exercise). Follow-Up: Consider repeating this study in 2 to 3 years to reassess this patient's status, or sooner if there is some new clinical indication. Reported by: ABISAI on 03/06/2025 3:14:00 PM. Reviewed, dictated and finalized at location A.
== END 2025-03-06 14:47 | disposition home or self-care (01) ==
LOC: MICIMG 14:47
PROVIDERS: PCP Internal Medicine; Visit Provider Internal Medicine
DX: Z78.0 Asymptomatic menopausal state (principal); M85.88 Other specified disorders of bone density and structure, other site; M85.852 Other specified disorders of bone density and structure, left thigh
CPT/HCPCS: 77080